=== PATIENT | male | born 1945 | race Caucasian/White ===

== ENCOUNTER 2018-01-12 07:58 | Day surgery (SDC) | payer OTHER, BC ==
[2018-01-11 13:32] VITALS: BMI 29.8
[2018-01-12 08:25] VITALS: TEMP 97.5
[2018-01-12] MEDS ORDERED: PROPOFOL 20 ML ONE ×2 (09:26)
[2018-01-12 11:47] VITALS: BP 121/62; PULSE 50
--- NOTE | 2018-01-15 13:01 | PATH ---
Surgical Pathology Report Patient Name: JENNIE CROUCH [facility]. Rec. #: [id number] /Age/Gender: 1945 (Age: 72) / M Account: [id number] Location: [facility]-ENDOSCOPY Taken: 01/12/2018 Received: 01/12/2018 Reported: 01/15/2018 Physicians: Faisal Marie M.D. Specimen(s) Received A: BX SECOND PORTION DUODENUM & DUODENAL BULB B: BX ANTRUM C: BX MID TRANSVERSE COLON POLYP Clinical History Anemia, occult GI bleeding, adenoma surveillance Postoperative diagnosis: Duodenitis, mid transverse colon polyp, diverticulosis Final Diagnosis A. DUODENUM, SECOND PORTION AND DUODENAL BULB, BIOPSY: DUODENAL MUCOSA WITH MILD TO MODERATE ACUTE AND CHRONIC DUODENITIS AND ANA'S GLAND HYPERPLASIA. B. STOMACH, ANTRUM, BIOPSY: GASTRIC ANTRAL MUCOSA WITH MILD CHRONIC GASTRITIS. IMMUNOHISTOCHEMICAL STAIN FOR H. PYLORI IS NEGATIVE. C. MID TRANSVERSE COLON, POLYP, BIOPSY: TUBULAR ADENOMA. Electronically Signed Carol Ann Alvarez M.D. Gross Description A. Received in formalin, labeled "biopsy second portion of duodenum and duodenal bulb" are 4 hutchinson, irregular portions of soft tissue ranging from 0.1-0.3 cm. in greatest dimension. The specimens are submitted in toto in one cassette. B. Received in formalin, labeled "biopsy antrum" are 4 hutchinson, irregular portions of soft tissue ranging from 0.2-0.3 cm. in greatest dimension. The specimens are submitted in toto in one cassette. C. Received in formalin, labeled "biopsy mid transverse colon polyp" is a hutchinson, irregular portion of soft tissue measuring 0.4 cm. in greatest dimension. The specimen is submitted in toto in one cassette. DL/01/12/2018 saudi01/12/2018
== END 2018-01-12 11:47 | disposition home or self-care (01) ==
LOC: JASU-ENDO 07:58
PROVIDERS: ATTEND Internal Medicine Gastroenterology
PROC: 0DB98ZX Excision of Duodenum, Via Natural or Artificial Opening Endoscopic, Diagnostic (ICD-10-PCS; 2018-01-12)
PROC: 0DB68ZX Excision of Stomach, Via Natural or Artificial Opening Endoscopic, Diagnostic (ICD-10-PCS; 2018-01-12)
PROC: 0DBL8ZX Excision of Transverse Colon, Via Natural or Artificial Opening Endoscopic, Diagnostic (ICD-10-PCS; principal; 2018-01-12 09:00)
DX: Z12.11 Encounter for screening for malignant neoplasm of colon (principal); D50.9 Iron deficiency anemia, unspecified; Z86.010 Personal history of colon polyps; R19.5 Other fecal abnormalities; D12.3 Benign neoplasm of transverse colon; K29.80 Duodenitis without bleeding; E11.9 Type 2 diabetes mellitus without complications; I10 Essential (primary) hypertension
CPT/HCPCS: 82962; 88305-TC; 88342-TC

== ENCOUNTER 2018-04-23 13:40 | Observation (INO) | payer OTHER, BC ==
--- NOTE | 2018-04-23 13:47 | PDOC ---
History of Present Illness - General Chief Complaint: Syncope/Near Syncope Stated Complaint: syncope Time Seen by Provider: 04/23/18 13:46 History Source: Patient Exam Limitations: No Limitations Past History - Past Medical History Allergies/Adverse Reactions: Allergies Allergy/AdvReac Type Severity Reaction Status Date / Time No Known Allergies Allergy Verified 06/19/15 15:38 Home Medications: Ambulatory Orders Atorvastatin Ca [Lipitor] 40 mg PO HS 06/19/15 Bimatoprost [Lumigan] 1 drop IO DAILY 06/19/15 Diltiazem Cd [Cardizem Cd -] 120 mg PO HS 06/19/15 Losartan Potassium [Cozaar -] 25 mg PO DAILY 06/19/15 Sitagliptin Phosphate [Januvia -] 25 mg PO DAILY 06/19/15 Pantoprazole Sodium 40 mg PO DAILY #90 tablet. 01/12/18 Pantoprazole Sodium [Protonix -] 40 mg PO DAILY #30 tablet.ec 01/12/18 Anemia: Yes Asthma: No Cardiac Disorders: Yes (ASHD) COPD: Yes Diabetes: Yes (NIDDM) GI Disorders: Yes (COLON POLYP) Disorders: Yes (BPH) HTN: Yes Hypercholesterolemia: Yes Liver Disease: Yes (S/P HEPATITIS A) - Surgical History Cardiac Surgery: Yes (S/P 2 VESSEL CABG 2007) Orthopedic Surgery: Yes (CONSTANTINE. ROTATOR CUFF) - Suicide/Smoking/Psychosocial Hx Smoking History: Never smoked Have you smoked in the past 12 months: No Hx Alcohol Use: No Drug/Substance Use Hx: No Substance Use Type: None *DC/Admit/Observation/Transfer - Referrals Referrals: Star Harris MD [Primary Care Provider] - - Patient Instructions - Post Discharge Activity
[2018-04-23 14:13] VITALS: BMI 30.7
[2018-04-23] MEDS ORDERED: SODIUM CHLORIDE 0.9% 500 ML INFUS.BAG IV ONE (14:33)
[2018-04-23 14:54] LABS: HEMATOCRIT 42.6 % (35.4-49); HEMOGLOBIN 13.8 GM/dL (11.7-16.9); MCH 27.8 pg (25.7-33.7); MCHC 32.4 g/dl (32.0-35.9); MEAN CELL VOLUME 85.8 fl (80-96); MEAN PLT VOLUME 9.6 fl (7.5-11.1); PLATELET COUNT 200 K/MM3 (134-434); RBC 4.96 M/mm3 (4.00-5.60); RDW 15.4 % (11.9-15.9); WHITE BLOOD COUNT 7.4 K/mm3 (4.0-10.0)
--- NOTE | 2018-04-23 15:04 | PDOC ---
History of Present Illness - General Chief Complaint: Syncope/Near Syncope Stated Complaint: syncope Time Seen by Provider: 04/23/18 13:46 - History of Present Illness Initial Comments: Santiago Best is a 72yo man with a PMH of HTN, HLD, DM and 2vCABG (10yrs ago) who presents with an episode of syncope while at the gym today. He reports that he had spent about an hour on the elliptical followed by weights. He was just about to start a 30 minute walk on the treadmill (not yet walking) when he started to feel lightheaded. Mr Best said that he knew something was wrong so turned and used both hands to support himself on the side rail of the treadmill. He states that the next thing he knew, he was laying on the ground. There were witnesses present that reportedly saw him fall and called 911. Mr Best denies any head injury or trauma when he fell. He did not have any chest pain, SOB, neurological symptoms, nausea or vomiting prior to fainting. He is unsure whether he had any sweating as he was working out at the gym and was sweating signicantly already. He does report a somewhat similar episode about 2 months ago. 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 He does not believe that he lost consiousness during that episode but the student he was with apparently told him that he put is head down on the table and acted oddly for a short period of time. It is unclear whether this was truely syncope. Mr Best denies any recent illness or unusual symptoms. 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 He states that this has been his baseline HR for many years. Other than the 2 episodes mentioned above, he has not had any lightheadedness, orthostatic symptoms, known arrhythmia, chest pain, SOB. He does endorse feeling dehydrated today. Past History - Past Medical History Allergies/Adverse Reactions: Allergies Allergy/AdvReac Type Severity Reaction Status Date / Time No Known Allergies Allergy Verified 06/19/15 15:38 Home Medications: Ambulatory Orders Atorvastatin Ca [Lipitor] 40 mg PO HS 06/19/15 Bimatoprost [Lumigan] 1 drop IO DAILY 06/19/15 Losartan Potassium [Cozaar -] 25 mg PO DAILY 06/19/15 Sitagliptin Phosphate [Januvia -] 25 mg PO DAILY 06/19/15 Pantoprazole Sodium [Protonix -] 40 mg PO DAILY #30 tablet.ec 01/12/18 Bimatoprost [Lumigan] 1 drop IO DAILY 04/23/18 Brimonidine Tartrate 1 drop OU TID 04/23/18 Anemia: Yes Asthma: No Cardiac Disorders: Yes (ASHD) COPD: Yes Diabetes: Yes (NIDDM) GI Disorders: Yes (COLON POLYP) Disorders: Yes (BPH) HTN: Yes Hypercholesterolemia: Yes Liver Disease: Yes (S/P HEPATITIS A) - Surgical History Cardiac Surgery: Yes (S/P 2 VESSEL CABG 2007) Orthopedic Surgery: Yes (CONSTANTINE. ROTATOR CUFF) - Suicide/Smoking/Psychosocial Hx Smoking History: Never smoked Have you smoked in the past 12 months: No Information on smoking cessation initiated: No Hx Alcohol Use: No Drug/Substance Use Hx: No Substance Use Type: None Review of Systems - Review of Systems Comments:: General: No fevers, no chills, no weight or appetite change, no malaise HEENT: No changes in vision, no changes in hearing, no congestion, no sore throat CV: No chest pain, no palpitations, no LE edema Pulm: No SOB, no cough, no wheezing GI: No nausea or vomiting, no change in bowel habits, no melena : No frequency, no urgency, no dysuria Musc: No back pain, no joint swelling, no recent injury Skin: No rash, no lesions, no erythema Endo: No excessive thirst, no heat/cold intolerance Heme: No unusual bruising or bleeding, no swollen glands Neuro: No numbness/tingling, no focal weakness Vasc: No claudication Psych: No recent change in mood, no SI or HI *Physical Exam - Vital Signs Last Vital Signs Temp Pulse Resp BP Pulse Ox 98.3 F 53 L 18 135/69 97 04/23/18 13:46 04/23/18 13:46 04/23/18 13:46 04/23/18 13:46 04/23/18 14:50 - Physical Exam Comments: General: Comfortable, no acute distress HEENT: PERRL, EOMI, MMM, voice normal, normal neck ROM Cards: Bradycardic, regular, no murmur appreciated Pulm: Comfortable on room air, clear to auscultation bilaterally Abd: Soft, nontender, nondistended Ext: Atraumatic. No LE edema. ROM intact. Strength 5/5 and equal bilaterally Vasc: Extremities WWP. Palpable radial and pedal pulses bilaterally Neuro: A&Ox3, CN grossly intact, normal speech, motor/sensory grossly intact and symmetric. No focal abnormalities Psych: Mood appropriate to situation ED Treatment Course - LABORATORY CBC & Chemistry Diagram: 04/23/18 14:42 04/23/18 14:41 - ADDITIONAL ORDERS Additional order review: 04/23/18 14:42 RBC 4.96 MCV 85.8 MCHC 32.4 RDW 15.4 MPV 9.6 - Medications Given in the ED: ED Medications Discontinued Medications Generic Name Dose Route Start Last Admin Trade Name Freq PRN Reason Stop Dose Admin Sodium Chloride 1,000 ml 04/23/18 14:33 04/23/18 14:54 Normal Saline - IV 04/23/18 14:34 1,000 ml ONCE ONE Administration Medical Decision Making - Medical Decision Making 04/23/18 15:29 Santiago Best is a 72yo man with a PMH of HTN, HLD, DM, h/o 2vCABG and, per the patient, chronic bradycardia who presents with an episode of syncope following an hour of exercising earlier today. He reports a similar incident about 2 months ago while sitting quietly. - EKG with sinus bradycardia - CBC, BMP, mag, phos, trop, CXR ordered - pending - Differential includes arrhythmia not noted on EKG, orthostatics potentially secondary to dehydration, vasovagal syncope. Normal EKG and no relevant associated symptoms make ACS unlikely, though Mr Best does have a h/o CAD s/p CABG. - Per pt, HR in 50's is his baseline. This is reasonable considering the frequency and length of cardiovascular exercise reported - 1L bolus NS ordered for likely hypovolemia - Likely to admit to telemetry obs for monitoring. Discussed with patient - Cardiology consulted - Hospitalist contacted for admission. 04/23/18 19:18 - Following admission, while waiting for a bed upstairs, Mr Best decided to leave the hospital AMA. He was advised again to remain, and he understands the risks of leaving the hospital. 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 Discussed with Dr Trevino. *DC/Admit/Observation/Transfer Diagnosis at time of Disposition: Syncope Qualifiers: Syncope type: unspecified Qualified Code(s): R55 - Syncope and collapse - Discharge Dispostion Disposition: AGAINST MEDICAL ADVICE Condition at time of disposition: Stable Decision to Admit order: Yes - Referrals Referrals: Star Harris MD [Primary Care Provider] - - Patient Instructions Printed Discharge Instructions: DI for Syncope in Adults (Fainting) Additional Instructions: You are leaving against medical advice. Please go to Dr. Bishop's office tomorrow. If you have worsening symptoms, please return to the ER for further evaluation. - Post Discharge Activity
[2018-04-23 15:07] LABS: ANION GAP 8 (8-16); BLOOD UREA NITROGEN 32 mg/dL (7-18); CALCIUM 9.6 mg/dL (8.5-10.1); CHLORIDE 102 mmol/L (98-107); CO2 26 mmol/L (21-32); CREATININE 1.9 mg/dL (0.7-1.3); GLUCOSE,RANDOM 103 mg/dL (74-106); MAGNESIUM 1.7 mg/dL (1.8-2.4); PHOSPHOROUS 2.7 mg/dL (2.5-4.9); POTASSIUM 4.5 mmol/L (3.5-5.1); SODIUM 136 mmol/L (136-145)
--- NOTE | 2018-04-23 15:21 | PDOC ---
Attending Attestation - Resident Resident Name: Jimena Lemus - ED Attending Attestation I have performed the following: I have examined & evaluated the patient, The case was reviewed & discussed with the resident, I agree w/resident's findings & plan, Exceptions are as noted - HPI HPI: 04/23/18 15:12 72 year old male with past medical history of HTN, DM, HLD, CAD s/p 2V CABG p/w syncope. The patient was at the gym. He typically exercises very frequently. Stated he was on the elliptical and was feeling fine. Exercised for about an hour. Sat down. When he went to get back up, he went to go on the treadmill. [place] very lightheaded. Sat himself down and syncopized. Denies chest pain, SOB, palpitations. Denies trauma. Reports feeling well now. 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 Did not follow up then. Pt's surgery technician is Dr. Bishop. - Physicial Exam PE: 04/23/18 15:21 GENERAL: Awake, alert, and fully oriented, in no acute distress HEAD: No signs of trauma EYES: EOMI, sclera anicteric, conjunctiva clear ENT: Auricles normal inspection, hearing grossly normal, nares patent NECK: Normal ROM, supple LUNGS: Breath sounds equal, clear to auscultation bilaterally. No wheezes, and no crackles HEART: Regular rate and rhythm, normal S1 and S2, no murmurs, rubs or gallops ABDOMEN: Soft, nontender. No guarding, no rebound. No masses EXTREMITIES: Normal range of motion, no edema. No clubbing or cyanosis. No cords, erythema, or tenderness NEUROLOGICAL: Cranial nerves II through XII grossly intact. Normal speech SKIN: Warm, Dry, normal turgor, no rashes or lesions noted. - Medical Decision Making 04/23/18 15:22 Vital Signs Temp Pulse Resp BP Pulse Ox 98.3 F 53 L 18 135/69 97 04/23/18 13:46 04/23/18 13:46 04/23/18 13:46 04/23/18 13:46 04/23/18 14:50 72 year old male presents with syncope. R/o cardiac etiology. Neurologically intact. Labs including troponin. Dr. Richey consulted. Admit. Heart Score/ECG Review #1 ECG reviewed & interpreted by me at: 13:45 04/23/18 15:10 NSR 52, no std/madison, normal axis, normal intervals, no brugada, no HOCM, no WPW, QTC 381 msec
--- NOTE | 2018-04-23 15:22 | CON.CARD ---
Consult Consult Specialty:: Cardiology Referred by:: ER Reason for Consultation:: Syncope - History of Present Illness Chief Complaint: Syncope History of Present Illness: Santiago Best is a 72yo man with a PMH of HTN, HLD, DM and 2vCABG (VIEIRA->LAD, SVG ->LCx OM) 10/24/2007, diastolic dysfunction, COPD, chronic left hemidaiphragm dyfunction, GERD, CKD, BPH last seen in office 03/27/2018 presented with an episode of syncope while at the gym today. He reports typically exercising very frequently. that he had spent about an hour on the elliptical followed by weights. He was just about to start a 30 minute walk on the treadmill (not yet walking) when he started to feel prodrome of lightheadedness and nausea. Mr Best said that he knew something was wrong so turned and used both hands to support himself on the side rail of the treadmill. He states that the next thing he knew, he was laying on the ground. There were witnesses present that reportedly saw him fall and called 911. Mr Best denies any head injury or trauma when he fell. He did not have any chest pain, SOB, neurological symptoms, vomiting prior to fainting, palpitations or diaphoresis. He does report a somewhat similar episode about 2 months ago. 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 He does not believe that he lost consiousness during that episode but the student he was with apparently told him that he put is head down on the table and acted oddly for a short period of time. It is unclear whether this was truely syncope. He does endorse feeling dehydrated today. - History Source History Provided By: Patient Limitations to Obtaining History: No Limitations - Alcohol/Substance Use Hx Alcohol Use: No - Smoking History Smoking history: Never smoked Have you smoked in the past 12 months: No Home Medications - Allergies Allergies/Adverse Reactions: Allergies Allergy/AdvReac Type Severity Reaction Status Date / Time No Known Allergies Allergy Verified 06/19/15 15:38 - Home Medications Home Medications: Ambulatory Orders Atorvastatin Ca [Lipitor] 40 mg PO HS 06/19/15 Bimatoprost [Lumigan] 1 drop IO DAILY 06/19/15 Losartan Potassium [Cozaar -] 25 mg PO DAILY 06/19/15 Sitagliptin Phosphate [Januvia -] 25 mg PO DAILY 06/19/15 Pantoprazole Sodium [Protonix -] 40 mg PO DAILY #30 tablet.ec 01/12/18 Bimatoprost [Lumigan] 1 drop IO DAILY 04/23/18 Brimonidine Tartrate 1 drop OU TID 04/23/18 Review of Systems - Review of Systems Gastrointestinal: reports: Nausea Neurological: reports: Syncope Vital Signs: Vital Signs Temperature 98.3 F 04/23/18 13:46 Pulse Rate 53 L 04/23/18 13:46 Respiratory Rate 18 04/23/18 13:46 Blood Pressure 135/69 04/23/18 13:46 O2 Sat by Pulse Oximetry (%) 97 04/23/18 14:50 Constitutional: Yes: No Distress, Calm Neck: Yes: Supple Respiratory: Yes: Regular, CTA Bilaterally Gastrointestinal: Yes: Normal Bowel Sounds, Soft Cardiovascular: Yes: Regular Rate and Rhythm JVD: No Carotid Bruit: No Heart Sounds: Yes: S1, S2 Edema: No - Other Data Labs, Other Data: CBC, BMP 04/23/18 14:42 04/23/18 14:41 Troponin, BNP 04/23/18 14:41 Troponin I 0.05 D Troponin, BNP 04/23/18 14:41 Troponin I 0.05 D SB @ [address]-T changes Problem List - Problems (1) S/P CABG x 2 Code(s): Z95.1 - PRESENCE OF AORTOCORONARY BYPASS GRAFT (2) Acute on chronic kidney failure Code(s): N17.9 - ACUTE KIDNEY FAILURE, UNSPECIFIED; N18.9 - CHRONIC KIDNEY DISEASE, UNSPECIFIED Qualifiers: Acute renal failure type: unspecified (3) CAD (coronary artery disease) Code(s): I25.10 - ATHSCL HEART DISEASE OF [place] CORONARY ARTERY W/O ANG PCTRS Qualifiers: Coronary Disease-Associated Artery/Lesion type: [place] artery [place] vs. transplanted heart: [place] heart Associated angina: without angina Qualified Code(s): I25.10 - Atherosclerotic heart disease of [place] coronary artery without angina pectoris (4) Dyslipidemia Code(s): E78.5 - HYPERLIPIDEMIA, UNSPECIFIED (5) HTN (hypertension) Code(s): I10 - ESSENTIAL (PRIMARY) HYPERTENSION Qualifiers: Hypertension type: essential hypertension Qualified Code(s): I10 - Essential (primary) hypertension (6) Syncope Code(s): R55 - SYNCOPE AND COLLAPSE Qualifiers: Syncope type: unspecified Qualified Code(s): R55 - Syncope and collapse (7) T2DM (type 2 diabetes mellitus) Code(s): E11.9 - TYPE 2 DIABETES MELLITUS WITHOUT COMPLICATIONS Qualifiers: Diabetes mellitus snf insulin use: without longwall foreman use (8) Diastolic dysfunction Code(s): I51.9 - HEART DISEASE, UNSPECIFIED (9) Dehydration Code(s): E86.0 - DEHYDRATION Assessment/Plan 05/11/2017 Echo: Normal LV size and fxn LVEF 60-65%, normal RV size and fxn, mild MR, TR, tr AR 1. Vasovagal syncope with typical prodromal sxs 2. CAD s/p CABG, angina pectoris 3. HTN/HCVD 4. Mixed hyperlipidemia 5. Type 2 DM 6. Mild-moderate asymptomatic cardotid stenosis 7. MATY likely pre-renal P:1. Agree with hydration with electrolyte fluids, check orthostatic VS, monitor renal recovery and electrolytes 2. Continue Lipitor 40 qhs, ASA 81 qd, hold losartan 25 qd pending renal recovery, resume Cardizem CD 240 qd as hemodynamics tolerate 3. Upright tilt table testing as outpatient for confirmation 4. Counselled on abortive maneuvers once prodrimal sxs experienced, hydration with electrolyte fluids 5. Thank you for consultative opportunity, anticipate d/c in AM with f/u with Dr. Mark in office
--- NOTE | 2018-04-23 15:42 | HP ---
Admitting History and Physical - Primary Care Physician PCP: Star Harris - Admission Chief Complaint: Transient LOC History of Present Illness: 72 yrs old man H/O HTN, T@DM, CAD s/p 2VS CABG, Dyslipedemia, CKD stage 3 excelet exercise tolerance present after an episode of TLOC while exercising in a GYM, as per patient he ate light breakfast and exercised 63 minutes on an Elliptical after that he rested for 10 minutes and climbed over a treadmill for 30 minutes walk not yet walking felt lightheaded. Mr Best said that he knew something was wrong so turned and used both hands to support himself on the side rail of the treadmill. 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 History Source: Patient - Past Medical History Cardiovascular: Yes: CAD, Hyperlipdemia Endocrine: Yes: Diabetes Insipidus - Past Surgical History Past Surgical History: Yes: CABG - Smoking History Smoking history: Never smoked Have you smoked in the past 12 months: No - Alcohol/Substance Use Hx Alcohol Use: No Home Medications - Allergies Allergies/Adverse Reactions: Allergies Allergy/AdvReac Type Severity Reaction Status Date / Time No Known Allergies Allergy Verified 06/19/15 15:38 - Home Medications Home Medications: Ambulatory Orders Atorvastatin Ca [Lipitor] 40 mg PO HS 06/19/15 Bimatoprost [Lumigan] 1 drop IO DAILY 06/19/15 Losartan Potassium [Cozaar -] 25 mg PO DAILY 06/19/15 Sitagliptin Phosphate [Januvia -] 25 mg PO DAILY 06/19/15 Pantoprazole Sodium [Protonix -] 40 mg PO DAILY #30 tablet.ec 01/12/18 Bimatoprost [Lumigan] 1 drop IO DAILY 04/23/18 Brimonidine Tartrate 1 drop OU TID 04/23/18 Family Disease History - Family Disease History Family Disease History: CA: Father Physical Examination Vital Signs: Vital Signs Temperature 98.3 F 04/23/18 13:46 Pulse Rate 53 L 04/23/18 13:46 Respiratory Rate 18 04/23/18 13:46 Blood Pressure 135/69 04/23/18 13:46 O2 Sat by Pulse Oximetry (%) 97 04/23/18 14:50 Constitutional: Yes: Well Nourished, No Distress, Calm Eyes: Yes: Conjunctiva Clear, EOM Intact HENT: Yes: Atraumatic, Normocephalic Neck: Yes: Supple, Trachea Midline. No: Decreased ROM, Lymphadenopathy Cardiovascular: Yes: Regular Rate and Rhythm, Bradycardia, S1, S2. No: Bruit, JVD Respiratory: Yes: CTA Bilaterally Gastrointestinal: Yes: Normal Bowel Sounds, Soft. No: Tenderness, Rebound Musculoskeletal: No: Back Pain, Joint Stiffness Edema: No Peripheral Pulses: Left Doralis Pedis: 2+, Right Dorsalis Pedis: 2+ Neurological: Yes: Alert, Oriented, Weakness. No: Aphasia, Asterixis, Ataxia ...Motor Strength: WNL, LUE, LLE Psychiatric: Yes: WNL Labs: CBC, BMP 04/23/18 14:42 04/23/18 14:41 Imaging - Results X-ray: Report Reviewed EKG: Report Reviewed (Sinusbrady at 52) Problem List - Problems (1) Syncope Code(s): R55 - SYNCOPE AND COLLAPSE Qualifiers: Syncope type: unspecified Qualified Code(s): R55 - Syncope and collapse (2) Acute kidney failure due to procedure Code(s): N99.0 - POSTPROCEDURAL (ACUTE) (CHRONIC) KIDNEY FAILURE (3) Acute on chronic kidney failure Code(s): N17.9 - ACUTE KIDNEY FAILURE, UNSPECIFIED; N18.9 - CHRONIC KIDNEY DISEASE, UNSPECIFIED (4) Dehydration Code(s): E86.0 - DEHYDRATION (5) CAD (coronary artery disease) Code(s): I25.10 - ATHSCL HEART DISEASE OF [place] CORONARY ARTERY W/O ANG PCTRS (6) HTN (hypertension) Code(s): I10 - ESSENTIAL (PRIMARY) HYPERTENSION (7) T2DM (type 2 diabetes mellitus) Code(s): E11.9 - TYPE 2 DIABETES MELLITUS WITHOUT COMPLICATIONS (8) Dyslipidemia Code(s): E78.5 - HYPERLIPIDEMIA, UNSPECIFIED
[2018-04-23] MEDS ORDERED: INSULIN SLIDING SCALE (NOVOLOG) 1 VIAL SQ SCH (16:30)
[2018-04-23] MEDS ORDERED: INSULIN REGULAR HUMAN 100 UNITS/ML *VIAL ONE (16:48)
[2018-04-23 19:06] VITALS: BP 144/67; PULSE 79; TEMP 98.1
--- NOTE | 2018-04-23 19:16 | PDOC ---
*Physical Exam - Vital Signs Last Vital Signs Temp Pulse Resp BP Pulse Ox 98.1 F 79 19 144/67 97 04/23/18 19:05 04/23/18 19:05 04/23/18 19:05 04/23/18 19:05 04/23/18 19:05 ED Treatment Course - LABORATORY CBC & Chemistry Diagram: 04/23/18 14:42 04/23/18 14:41 - ADDITIONAL ORDERS Additional order review: Laboratory Results 04/23/18 04/23/18 04/23/18 16:46 16:07 14:41 Sodium 136 Potassium 4.5 Chloride 102 Carbon Dioxide 26 Anion Gap 8 BUN 32 H Creatinine 1.9 H Creat Clearance w eGFR 35.02 POC Glucometer [id number] Random Glucose 103 Calcium 9.6 Phosphorus 2.7 Magnesium 1.7 L D Creatine Kinase 200 Creatine Kinase Index 1.6 CK-MB (CK-2) 3.39 Troponin I 0.05 D 04/23/18 04/23/18 16:46 14:42 RBC 4.96 MCV 85.8 MCHC 32.4 RDW 15.4 MPV 9.6 POC Glucometer 176.71174 - Medications Given in the ED: ED Medications Discontinued Medications Generic Name Dose Route Start Last Admin Trade Name Freq PRN Reason Stop Dose Admin Sodium Chloride 1,000 ml 04/23/18 14:33 04/23/18 14:54 Normal Saline - IV 04/23/18 14:34 1,000 ml ONCE ONE Administration Medical Decision Making - Medical Decision Making 04/23/18 19:12 I had a lengthy discussion with the patient. The patient states that he absolutely does not want to stay, as there are no beds in telemetry. The patient states that he feels comfortable and does not want to stay in the ED all night. Risks and benefits were discussed with the patient. Despite knowing possible the risks of , arrhythmia, [place], the patient wants to leave AMA. Pt's partner at bedside who is a witness. Pt has capacity and AAOx3. Pt has signed out AMA. *DC/Admit/Observation/Transfer Diagnosis at time of Disposition: Syncope Qualifiers: Syncope type: unspecified Qualified Code(s): R55 - Syncope and collapse - Discharge Dispostion Disposition: AGAINST MEDICAL ADVICE Condition at time of disposition: Stable Decision to Admit order: No - Referrals Referrals: Star Harris MD [Primary Care Provider] - - Patient Instructions Printed Discharge Instructions: DI for Syncope in Adults (Fainting) Additional Instructions: You are leaving against medical advice. Please go to Dr. Bishop's office tomorrow. If you have worsening symptoms, please return to the ER for further evaluation. - Post Discharge Activity
[2018-04-23] MEDS ORDERED: ATORVASTATIN CA 40 MG TABLET (FP) PO SCH (22:00)
[2018-04-23] MEDS ORDERED: BRIMONIDINE TARTRATE 0.2% OPHTHALMIC 5 ML BOTTLE OU SCH (22:00)
[2018-04-23] MEDS ORDERED: LATANOPROST 0.005% OPHTH SOLN 2.5ML BOTTLE OU SCH (22:00)
[2018-04-24] MEDS ORDERED: sitaGLIPtin PHOSPHATE 25 MG TABLET (FP) PO SCH (07:00)
[2018-04-24] MEDS ORDERED: PANTOPRAZOLE 40 MG TABLET (FP) PO SCH (10:00)
[2018-04-24] MEDS ORDERED: PATIENT'S OWN MEDICATION (NON-FORMULARY) (Bimatoprost [Lumigan] 1 DROP) IO SCH ×2 (10:00)
[2018-04-24] MEDS ORDERED: LOSARTAN POTASSIUM 25 MG TABLET PO SCH (10:00)
--- NOTE | 2018-04-24 16:27 | EKG ---
Test Reason : Blood Pressure : / mmHG Vent. Rate : 052 BPM Atrial Rate : 052 BPM P-R Int : 182 ms QRS Dur : 088 ms QT Int : 410 ms P-R-T Axes : 054 014 047 degrees QTc Int : 381 ms SINUS BRADYCARDIA WITH SINUS ARRHYTHMIA OTHERWISE NORMAL ECG WHEN COMPARED WITH ECG OF 19-JUN-2015 18:45, NO SIGNIFICANT CHANGE WAS FOUND Confirmed by Washington Chou MD ([id number]) on 04/24/2018 4:27:13 PM Referred By: Confirmed By:Washington Chou MD
== END 2018-04-23 19:20 | disposition left against medical advice (07) ==
LOC: JER 13:40 → JERBED 15:23
PROVIDERS: ADMIT Internal Medicine; ATTEND Internal Medicine
PROC: 3E013VG Introduction of Insulin into Subcutaneous Tissue, Percutaneous Approach (ICD-10-PCS; principal; 2018-04-23)
PROC: 3E0337Z Introduction of Electrolytic and Water Balance Substance into Peripheral Vein, Percutaneous Approach (ICD-10-PCS; 2018-04-23)
DX: R55 Syncope and collapse (principal); E11.22 Type 2 diabetes mellitus with diabetic chronic kidney disease; I12.9 Hypertensive chronic kidney disease with stage 1 through stage 4 chronic kidney disease, or unspecified chronic kidney disease; N18.9 Chronic kidney disease, unspecified; N17.9 Acute kidney failure, unspecified; I25.10 Atherosclerotic heart disease of native coronary artery without angina pectoris; E78.5 Hyperlipidemia, unspecified; I51.9 Heart disease, unspecified; E86.0 Dehydration; N40.0 Benign prostatic hyperplasia without lower urinary tract symptoms; N99.0 Postprocedural (acute) (chronic) kidney failure
CPT/HCPCS: 36415; 71045-TC-FY; 80048; 80061; 82550; 82553; 82962; 83721; 83735; 84100; 84484; 85027; 93005; 93010; 96372; 99285-25; G0378

== ENCOUNTER 2019-03-30 09:09 | Emergency (ER) | payer OTHER, BC ==
--- NOTE | 2019-03-30 09:29 | PDOC ---
History of Present Illness - General Chief Complaint: Lightheaded Stated Complaint: BALANCE PROBLEM Time Seen by Provider: 03/30/19 09:29 - History of Present Illness Initial Comments: 03/30/19 10:16 Chief complaint: Imbalance of gait History of present illness: Patient describes momentary imbalance in his gait when first arising in the morning. Specifically, when he stands up to get out of bed and it takes several seconds for him to get his equilibrium, and in that time he feels that he veers to one side or the other. This never lasts more than a few seconds, and afterwards his gait is stable. This is a not accompanied by symptoms of vertigo or other visual or focal neurologic symptoms. This has been occurring for several months, is not worsening, and if anything is slightly improved. He exercises regularly at the gym, doing the elliptical, weight machines, and walking on the treadmill, and has never experienced symptoms at these times. Review of systems: Denies fevers/chills, URI symptoms, sore throat, cough, chest pain, shortness of breath, abdominal pain, nausea, vomiting, diarrhea, visual or focal neurologic symptoms. Denies hematemesis, melena, bloody stools. Denies urinary tract symptoms. Denies weight gain or weight loss. As noted above , exercises regularly without symptoms. Remainder of systems reviewed and noncontributory Past medical history: Coronary artery disease with coronary bypass, now has chest pain or other symptoms. Hypertension controlled on losartan, borderline type 2 diabetes controlled on Januvia, elevated cholesterol on atorvastatin. One episode of syncope several years ago after exercising vigorously at the gym. This was attributed, after cardiological consultation with Dr. Shelley, and cardiac workup, to be vasovagal in origin. It never recurred. 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 fully active, no disability, exercises quite vigorously on a regular basis without symptoms as noted above. Family history: Father with mi in his 50s, brother with mi in his 70s. Otherwise negative Physical exam: Alert and oriented well-developed well-nourished no acute distress cheerful and cooperative. Asymptomatic at present. Vital signs: Afebrile, mild sinus bradycardia 55/m, otherwise normal PERRLA, fundi benign with sharp disc margins and good central venous pulsations. ENT clear. There appears to be slight protrusion of the right compared to the left, but the patient states that this has been present for many years and that indeed in the past he had a neurologic workup with scans to rule out a brain tumor. Neck supple without bruit mass or nodes Chest clear with full breath sounds bilaterally CV S1 and S2 normal without murmur rub or gallop pulses full and symmetric no JVD or edema no bruits mild sinus bradycardia 58/m Abdomen soft nontender without mass or organomegaly Neurological C2 to 12 intact. Strength symmetric. No focal sensory or motor deficits. Cerebellar function intact. Gait stable and unimpaired. There is no vertigo with head movement or change of position. There is no instability of gait Extremities no CCE Skin clear, no rash, adequate turgor normal at mucous membranes Impression: The nature of the patient's complaints, including duration limited to several seconds and unaccompanied by other cardiac or neurologic symptoms, makes it seem unlikely that there is any cardiac or neurologic disease. His exercise tolerance is excellent and he is asymptomatic after vigorous exercise. However, he does have several risk factors for cardiovascular disease Plan: EKG and enzymes, head CT, CBC chemistries, and further evaluation and treatment depending on results. Past History - Past Medical History Allergies/Adverse Reactions: Allergies Allergy/AdvReac Type Severity Reaction Status Date / Time No Known Allergies Allergy Verified 03/30/19 09:33 Home Medications: Ambulatory Orders Atorvastatin Ca [Lipitor] 40 mg PO HS 06/19/15 Losartan Potassium [Cozaar -] 25 mg PO DAILY 06/19/15 Sitagliptin Phosphate [Januvia -] 25 mg PO DAILY 06/19/15 Bimatoprost [Lumigan] 1 drop OU HS 04/23/18 Brimonidine Tartrate 1 drop OU TID 04/23/18 Aspirin [Aspirin EC] 81 mg PO HS 03/30/19 Diltiazem HCl [Diltiazem 24Hr Cd] 240 mg PO HS 03/30/19 Fenofibrate Nanocrystallized [Fenofibrate] 145 mg PO HS 03/30/19 Niacinamide [Niacin] 500 mg PO HS 03/30/19 [place]-3/Dha/Epa/Fish Oil [Fish Oil 1,000 mg Softgel] 2 each PO BID 03/30/19 Ranitidine HCl [Zantac] 150 mg PO BID 03/30/19 Anemia: Yes Asthma: No Cardiac Disorders: Yes (ASHD) COPD: Yes Diabetes: Yes (NIDDM) GI Disorders: Yes (COLON POLYP) Disorders: Yes (BPH) HTN: Yes Hypercholesterolemia: Yes Liver Disease: Yes (S/P HEPATITIS A) - Surgical History Cardiac Surgery: Yes (S/P 2 VESSEL CABG 2007) Orthopedic Surgery: Yes (CONSTANTINE. ROTATOR CUFF) - Suicide/Smoking/Psychosocial Hx Smoking History: Never smoked Have you smoked in the past 12 months: No Hx Alcohol Use: No Drug/Substance Use Hx: No Substance Use Type: None ED Treatment Course - LABORATORY CBC & Chemistry Diagram: 03/30/19 10:00 03/30/19 10:00 Medical Decision Making - Medical Decision Making 03/30/19 10:40 EKG reveals sinus bradycardia 47/m. Occasional PACs. No ST-T wave changes. No significant change from prior EKG dated 04/23/2018, except for slightly slower heart rate. The heart rate at that time was 52. 03/30/19 11:12 CBC, chemistries, cardiac enzymes without significant abnormalities. Glucose is 141. Renal function is stable. Head CT is negative. The patient's mild symptoms and limited duration is most likely due to chronic labyrinthitis/vertigo or mild vasomotor instability. There is no sign of acute cardiac or neurological event Reassured, follow-up primary physician and neurologist if recommended by primary M.D. Return to ER if symptoms worsen. Fully ambulatory and asymptomatic at discharge *DC/Admit/Observation/Transfer Diagnosis at time of Disposition: Labyrinthitis Qualifiers: Laterality: unspecified laterality Qualified Code(s): H83.09 - Labyrinthitis, unspecified ear - Discharge Dispostion Disposition: HOME Condition at time of disposition: Stable Decision to Admit order: No - Referrals Referrals: Star Harris MD [Primary Care Provider] - 2 Days Liu Cantrell DO [Staff Physician] - - Patient Instructions Printed Discharge Instructions: DI for Vertigo Additional Instructions: Return to ER if symptoms become more prolonged, severe, or accompanied by other new symptoms. Otherwise follow-up with primary physician. Consider consultation with the neurologist, Dr. Cantrell. - Post Discharge Activity
[2019-03-30 09:44] VITALS: BP 128/63; PULSE 54; TEMP 97
[2019-03-30 10:14] LABS: BASO % 0.4 % (0-2.0); EOS % 4.2 % (0-4.5); HEMATOCRIT 41.7 % (35.4-49); HEMOGLOBIN 13.4 GM/dl (11.7-16.9); LYMPH % 10.1 % (8-40); MCH 28.7 pg (25.7-33.7); MCHC 32.2 g/dl (32.0-35.9); MEAN CELL VOLUME 89.2 fl (80-96); MEAN PLT VOLUME 9.3 fl (7.5-11.1); MONO % 10.1 % (3.8-10.2); NEUT % 75.2 % (42.8-82.8); PLATELET COUNT 199 K/MM3 (134-434); RBC 4.68 M/mm3 (4.00-5.60); RDW 14.7 % (11.9-15.9); WHITE BLOOD COUNT 8.5 K/mm3 (4.0-10.8)
[2019-03-30 10:22] LABS: ALBUMIN 4.2 g/dl (3.4-5.0); CALCIUM 9.4 mg/dl (8.5-10); CREATININE 1.6 mg/dl (0.55-1.3); POTASSIUM 4.8 mmol/L (3.5-5.1); TOT PROT 7.4 g/dl (6.4-8.2)
--- NOTE | 2019-03-30 15:58 | EKG ---
Test Reason : Blood Pressure : / mmHG Vent. Rate : 047 BPM Atrial Rate : 047 BPM P-R Int : 200 ms QRS Dur : 094 ms QT Int : 466 ms P-R-T Axes : 038 044 063 degrees QTc Int : 412 ms SINUS BRADYCARDIA WITH PREMATURE ATRIAL COMPLEXES OTHERWISE NORMAL ECG WHEN COMPARED WITH ECG OF 23-APR-2018 13:45, PREMATURE ATRIAL COMPLEXES ARE NOW PRESENT Confirmed by ABEBA BENSON, PRISCILLA ([id number]) on 03/30/2019 3:58:14 PM Referred By: DAVON VELASQUEZ Confirmed By:PRISCILAL US MD
== END 2019-03-30 11:21 | disposition home or self-care (01) ==
LOC: FER 09:09
DX: H83.09 Labyrinthitis, unspecified ear (principal); I25.10 Atherosclerotic heart disease of native coronary artery without angina pectoris; I10 Essential (primary) hypertension; E78.00 Pure hypercholesterolemia, unspecified; N40.0 Benign prostatic hyperplasia without lower urinary tract symptoms; E11.9 Type 2 diabetes mellitus without complications
CPT/HCPCS: 36415; 70450-TC; 80053; 82550; 82553; 84484; 85025; 93005; 99283-25

== ENCOUNTER 2019-12-10 17:56 | Emergency (ER) | payer OTHER, BC ==
--- NOTE | 2019-12-10 17:59 | PDOC ---
History of Present Illness - General Chief Complaint: Syncope/Near Syncope Stated Complaint: 2 EPISODES OF "BLACKING OUT " FOR SECONDS Time Seen by Provider: 12/10/19 17:58 History Source: Patient Exam Limitations: No Limitations - History of Present Illness Initial Comments: 74 yo M history HTN, DM, CABG presents with two syncopal episodes that occurred earlier today. They occurred at home while seated. He states that he has had similar episodes in the past, had a complete neurological workup that was all negative. He states that when the episodes happened, he briefly felt a "euphoric" feeling, then lost consciousness for 5-10 seconds, then woke up to his fanning his face. Denies any preceding cp, SOB. No recent leg swelling, fever, chills, cough. No sick contacts. Past History - Past Medical History Allergies/Adverse Reactions: Allergies Allergy/AdvReac Type Severity Reaction Status Date / Time No Known Allergies Allergy Verified 12/10/19 17:59 Home Medications: Ambulatory Orders Atorvastatin Ca [Lipitor] 40 mg PO HS 06/19/15 Losartan Potassium [Cozaar -] 25 mg PO DAILY 06/19/15 Sitagliptin Phosphate [Januvia -] 25 mg PO DAILY 06/19/15 Bimatoprost [Lumigan] 1 drop OU HS 04/23/18 Brimonidine Tartrate 1 drop OU TID 04/23/18 Aspirin [Aspirin EC] 81 mg PO HS 03/30/19 Diltiazem HCl [Diltiazem 24Hr Cd] 240 mg PO HS 03/30/19 Fenofibrate Nanocrystallized [Fenofibrate] 145 mg PO HS 03/30/19 Niacinamide [Niacin] 500 mg PO HS 03/30/19 [place]-3/Dha/Epa/Fish Oil [Fish Oil 1,000 mg Softgel] 2 each PO BID 03/30/19 Ranitidine HCl [Zantac] 150 mg PO BID 03/30/19 Anemia: Yes Asthma: No Cardiac Disorders: Yes (ASHD) COPD: Yes Diabetes: Yes (NIDDM) GI Disorders: Yes (COLON POLYP) Disorders: Yes (BPH) HTN: Yes Hypercholesterolemia: Yes Liver Disease: Yes (S/P HEPATITIS A) - Surgical History Cardiac Surgery: Yes (S/P 2 VESSEL CABG 2007) Orthopedic Surgery: Yes (CONSTANTINE. ROTATOR CUFF) - Psycho Social/Smoking Cessation Hx Smoking History: Never smoked Have you smoked in the past 12 months: No Hx Alcohol Use: No Drug/Substance Use Hx: No Substance Use Type: None Review of Systems - Review of Systems Able to Perform ROS?: Yes Comments:: GENERAL/CONSTITUTIONAL: No fever or chills. No weakness. HEAD, EYES, EARS, NOSE AND THROAT: No change in vision. No ear pain or discharge. No sore throat. CARDIOVASCULAR: No chest pain or shortness of breath. RESPIRATORY: No cough, wheezing, or hemoptysis. GASTROINTESTINAL: No nausea, vomiting, diarrhea or constipation. GENITOURINARY: No dysuria, frequency, or change in urination. MUSCULOSKELETAL: No joint or muscle swelling or pain. No neck or back pain. SKIN: No rash. NEUROLOGIC: No headache, vertigo. +Loss of consciousness. No change in strength/sensation. ENDOCRINE: No increased thirst. No abnormal weight change. HEMATOLOGIC/LYMPHATIC: No anemia, easy bleeding, or history of blood clots. ALLERGIC/IMMUNOLOGIC: No hives or skin allergy. *Physical Exam - Physical Exam GENERAL: Awake, alert, and fully oriented, in no acute distress HEAD: No signs of trauma EYES: PERRLA, EOMI, sclera anicteric, conjunctiva clear ENT: Auricles normal inspection, hearing grossly normal, nares patent, oropharynx clear without exudates. Moist mucosa NECK: Normal ROM, supple, no lymphadenopathy, JVD, or masses LUNGS: Breath sounds equal, clear to auscultation bilaterally. No wheezes, and no crackles HEART: +Bradycardia with regular rhythm, normal S1 and S2, no murmurs, rubs or gallops ABDOMEN: Soft, nontender, normoactive bowel sounds. No guarding, no rebound. No masses EXTREMITIES: Normal range of motion, no edema. No clubbing or cyanosis. No cords, erythema, or tenderness NEUROLOGICAL: Cranial nerves II through XII grossly intact. Normal speech, normal gait. Motor and sensation intact SKIN: Warm, dry, normal turgor, no rashes or lesions noted. +Well-healed midline sternotomy scar. Medical Decision Making - Medical Decision Making 12/10/19 18:29 Given his prior history of CAD, will obtain labs including CBC, CMP, and troponin. 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 EKG shows bradycardia, which patient states is chronic (his heart rate is typically between mid 40s to low 50s). Discharge - Discharge Information Problems reviewed: Yes Clinical Impression/Diagnosis: Syncope Qualifiers: Syncope type: unspecified Qualified Code(s): R55 - Syncope and collapse Condition: Stable - Follow up/Referral - Patient Discharge Instructions - Post Discharge Activity
[2019-12-10 18:10] VITALS: BP 128/60; PULSE 53; TEMP 97.3; BMI 30.9
[2019-12-10 18:55] LABS: MEAN PLT VOLUME 9.6 fl (7.5-11.1)
[2019-12-10 18:58] LABS: HEMATOCRIT 45.7 % (35.4-49); HEMOGLOBIN 14.9 GM/dl (11.7-16.9); MCH 28.6 pg (25.7-33.7); MCHC 32.5 g/dl (32.0-35.9); MEAN CELL VOLUME 87.9 fl (80-96); PLATELET COUNT 256 K/MM3 (134-434); RDW 14.2 % (11.9-15.9); WHITE BLOOD COUNT 12.2 K/mm3 (4.0-10.8)
[2019-12-10 19:07] LABS: ALBUMIN 4.2 g/dl (3.4-5.0); BILIRUBIN,TOTAL 1.6 mg/dl (0.2-1); CALCIUM 9.5 mg/dl (8.5-10); CREATININE 2.1 mg/dl (0.55-1.3); TOT PROT 7.2 g/dl (6.4-8.2)
[2019-12-10 19:08] LABS: POTASSIUM 5.3 mmol/L (3.5-5.1)
[2019-12-10 19:20] LABS: PLATELET ESTIMATE ADEQUATE
--- NOTE | 2019-12-10 20:05 | PDOC ---
*Physical Exam - Vital Signs Last Vital Signs Temp Pulse Resp BP Pulse Ox 97.3 F L 53 L 18 128/60 96 12/10/19 17:58 12/10/19 17:58 12/10/19 17:58 12/10/19 19:27 12/10/19 17:58 ED Treatment Course - LABORATORY CBC & Chemistry Diagram: 12/10/19 16:40 12/10/19 16:40 - ADDITIONAL ORDERS Additional order review: Laboratory Results 12/10/19 12/10/19 18:10 16:40 Sodium 133 L Potassium 5.3 H Chloride 100 Carbon Dioxide 25 Anion Gap 8 BUN 52.0 H Creatinine 2.1 H Est GFR (CKD-EPI)AfAm 34.89 Est GFR (CKD-EPI)NonAf 30.10 Random Glucose 155 H Calcium 9.5 Total Bilirubin 1.6 H AST 53 H ALT 29 Alkaline Phosphatase 56 Troponin I < 0.03 Total Protein 7.2 Albumin 4.2 12/10/19 16:40 RBC 5.20 MCV 87.9 MCHC 32.5 RDW 14.2 MPV 9.6 Neutrophils % No Result Required. Lymphocytes % No Result Required. ED Progress Note - Progress Note Progress Note: Care of this patient received from Dr. Fry patient seen after having 2 brief syncopal episodes at home. Patient had similar episodes in the past with diagnosis of vasovagal syncope made after being seen by neurology and cardiology (Dr. Mark) Laboratory evaluation completed: Troponin is not elevated. Only significant abnormality in laboratory evaluation is a slight increase in patient's baseline BUN/creatinine (today's BUN is 52 and creatinine 2.1). Results discussed with the patient. He has a history of mild renal insuffi ciency in the past and is followed by Dr. Niya Keene. The patient states that his GFR has been dropping slightly over the last few years to the low 30s. Today's level is 30. Patient is currently comfortable and will be discharged with instructions to contact his general doctor (Dr. Harris), his miter sawyer (Dr. Mark) and his family health nurse practitioner (Dr. Keene) regarding today's ER visit He should return to the ER if he has any persistent weakness/lightheadedness or loss of consciousness Discharge - Discharge Information Problems reviewed: Yes Clinical Impression/Diagnosis: Syncope Qualifiers: Syncope type: unspecified Qualified Code(s): R55 - Syncope and collapse Condition: Stable Disposition: HOME - Follow up/Referral - Patient Discharge Instructions Patient Printed Discharge Instructions: DI for Syncope in Adults (Fainting) Additional Instructions: Drink plenty of fluids Contact Dr. Harris/Dr. Mark/Dr. Mario regarding today's visit as discussed Return to ER if you have any lightheadedness or recurrent fainting episodes - Post Discharge Activity
--- NOTE | 2019-12-11 10:20 | EKG ---
Test Reason : Blood Pressure : / mmHG Vent. Rate : 047 BPM Atrial Rate : 047 BPM P-R Int : 186 ms QRS Dur : 098 ms QT Int : 476 ms P-R-T Axes : 074 051 107 degrees QTc Int : 421 ms SINUS BRADYCARDIA NONSPECIFIC T WAVE ABNORMALITY ABNORMAL ECG WHEN COMPARED WITH ECG OF 30-MAR-2019 10:04, PREMATURE ATRIAL COMPLEXES ARE NO LONGER PRESENT NONSPECIFIC T WAVE ABNORMALITY NOW EVIDENT IN LATERAL LEADS Confirmed by Washington Chou MD ([id number]) on 12/11/2019 10:20:09 AM Referred By: MD CRUZ Confirmed By:Washington Chou MD
== END 2019-12-10 20:34 | disposition home or self-care (01) ==
LOC: FER 17:56
DX: R55 Syncope and collapse (principal)
CPT/HCPCS: 36415; 71045-TC-FY; 80053; 84484; 85025; 93005; 99285-25

== ENCOUNTER 2020-12-23 04:37 | Day surgery (SDC) | payer OTHER, BC ==
[2020-12-22 10:11] VITALS: BMI 32.5
[2020-12-23 11:41] VITALS: TEMP 97.8
[2020-12-23 13:00] VITALS: BP 105/50; PULSE 46
== END 2020-12-23 12:31 | disposition home or self-care (01) ==
LOC: JASU-ENDO 04:37
PROVIDERS: ATTEND Internal Medicine Gastroenterology
PROC: 0DB78ZX Excision of Stomach, Pylorus, Via Natural or Artificial Opening Endoscopic, Diagnostic (ICD-10-PCS; 2020-12-23)
PROC: 0DB98ZX Excision of Duodenum, Via Natural or Artificial Opening Endoscopic, Diagnostic (ICD-10-PCS; principal; 2020-12-23 11:00)
DX: K29.50 Unspecified chronic gastritis without bleeding (principal); K29.80 Duodenitis without bleeding; D64.9 Anemia, unspecified
CPT/HCPCS: 82962

== ENCOUNTER 2021-10-27 04:40 | Day surgery (SDC) | payer OTHER, BC ==
[2021-10-21 14:12] VITALS: BMI 31.9
[2021-10-27 09:38] VITALS: TEMP 98
[2021-10-27 10:44] VITALS: BP 135/54; PULSE 61
== END 2021-10-27 10:47 | disposition home or self-care (01) ==
LOC: JASU-ENDO 04:40
PROVIDERS: ATTEND Internal Medicine Gastroenterology
PROC: 0DBL8ZX Excision of Transverse Colon, Via Natural or Artificial Opening Endoscopic, Diagnostic (ICD-10-PCS; 2021-10-27)
PROC: 0DBM8ZX Excision of Descending Colon, Via Natural or Artificial Opening Endoscopic, Diagnostic (ICD-10-PCS; principal; 2021-10-27 09:00)
DX: Z12.11 Encounter for screening for malignant neoplasm of colon (principal); D12.4 Benign neoplasm of descending colon; D12.3 Benign neoplasm of transverse colon; K64.8 Other hemorrhoids; D50.9 Iron deficiency anemia, unspecified; D64.9 Anemia, unspecified; Z86.010 Personal history of colon polyps; E11.9 Type 2 diabetes mellitus without complications
CPT/HCPCS: 82962; 88305-TC

== ENCOUNTER 2025-04-18 06:38 | Day surgery (SDC) | payer OTHER, BC ==
[2025-04-10 13:41] VITALS: BMI 28.3
[2025-04-18 09:14] VITALS: TEMP 97.2
[2025-04-18 09:27] VITALS: RESP 19
[2025-04-18 09:40] VITALS: BP 134/65; PULSE 71
== END 2025-04-18 11:05 | disposition home or self-care (01) ==
LOC: JASU-ENDO 06:38
PROVIDERS: ATTEND Internal Medicine Gastroenterology
PROC: 0DBL8ZX Excision of Transverse Colon, Via Natural or Artificial Opening Endoscopic, Diagnostic (ICD-10-PCS; 2025-04-18)
PROC: 0DB98ZX Excision of Duodenum, Via Natural or Artificial Opening Endoscopic, Diagnostic (ICD-10-PCS; 2025-04-18)
PROC: 0DB78ZX Excision of Stomach, Pylorus, Via Natural or Artificial Opening Endoscopic, Diagnostic (ICD-10-PCS; 2025-04-18)
PROC: 0DB68ZX Excision of Stomach, Via Natural or Artificial Opening Endoscopic, Diagnostic (ICD-10-PCS; 2025-04-18)
PROC: 0DBM8ZX Excision of Descending Colon, Via Natural or Artificial Opening Endoscopic, Diagnostic (ICD-10-PCS; principal; 2025-04-18 08:00)
DX: Z12.11 Encounter for screening for malignant neoplasm of colon (principal); D50.9 Iron deficiency anemia, unspecified; D12.3 Benign neoplasm of transverse colon; D12.4 Benign neoplasm of descending colon; K64.8 Other hemorrhoids; K57.30 Diverticulosis of large intestine without perforation or abscess without bleeding; K29.50 Unspecified chronic gastritis without bleeding
CPT/HCPCS: 82962; 88305-TC; 88342-TC; 93005; 93010